=== PATIENT | female | born 1940 | race Caucasian/White ===

== ENCOUNTER 2020-07-18 10:21 | Inpatient (IN) ==
[2020-07-18] MEDS ORDERED: Ondansetron 4 mg VIAL 2 MG/ML 2 ml VIAL IV ONE (11:28)
[2020-07-18] MEDS ORDERED: Morphine 4 MG/ML VIAL (1 ml) IV ONE (11:29)
[2020-07-18 11:39] LABS: ABS Basophils 0.1 10^3/ul (0-0.2); ABS Eosinophils 0.1 10^3/ul (0-0.6); ABS Lymphocytes 0.6 10^3/ul (1.0-4.8); ABS Monocytes 0.6 10^3/ul (0-0.8); Eosinophil % 1.5 %; Hematocrit 37 % (35-47); Hemoglobin 12.2 g/dL (12.0-16.0); Lymphocyte % 9.5 %; Mean Corpuscular HGB Conc 33 g/dL (31-36); Mean Corpuscular Hemoglobin 32 pg (27-31); Mean Corpuscular Volume 98 fL (80-97); Mean Platelet Volume 10.3 fL (7.4-10.4); Platelet Count 261 10^3/uL (150-450); Red Blood Count 3.82 10^6 /uL (3.70-4.87); Red Cell Distribution Width 14 % (10-15); White Blood Count 6.4 10^3/uL (3.5-10.8)
[2020-07-18 11:51] LABS: Albumin 3.1 g/dL (3.2-5.2); CO2 Carbon Dioxide 22 mmol/L (22-32); Chloride 96 mmol/L (101-111); Sodium 131 mmol/L (135-145)
[2020-07-18 11:56] LABS: Activated Partial Thrombo Time 26.6 seconds (26.0-38.0); INR 1.18 (0.82-1.09)
[2020-07-18 11:57] LABS: ALT 60 U/L (7-52); AST 53 U/L (13-39); Albumin/Globulin Ratio 0.9 (1-3); Alkaline Phosphatase 70 U/L (34-104); BUN/Creatinine Ratio 18.2 (8-20); Blood Urea Nitrogen 35 mg/dL (6-24); C Reactive Protein 41.41 mg/L (<8.01); EGFR African American 30.4 (>60); EGFR Non-African American 25.1 (>60); Globulin 3.4 g/dL (2-4); Total Protein 6.5 g/dL (6.4-8.9)
[2020-07-18 12:05] LABS: Anion Gap 13 mmol/L (2-11); Glucose 623 mg/dL (70-100); Potassium 5.3 mmol/L (3.5-5.0)
[2020-07-18] MEDS ORDERED: NS 0.9% 1000 ml BAG 1,000 ML IV ONE (12:17)
[2020-07-18] MEDS ORDERED: cefTRIAXone 1 gm/50 mL NS BAG 1 GM/50 ML BAG IV ONE (12:18)
[2020-07-18 12:22] LABS: Troponin I 0.04 ng/mL (<0.03)
[2020-07-18 12:28] LABS: Urine Appearance Clear; Urine Bilirubin Negative (Negative); Urine Blood 1+ (Negative); Urine Color Yellow; Urine Glucose 3+(>=500 mg/dL) (Negative); Urine Ketones 1+ (Negative); Urine Nitrite Negative (Negative); Urine Protein Negative (Negative); Urine Specific Gravity 1.021 (1.010-1.030); Urine Urobilinogen Negative (Negative)
[2020-07-18] MEDS ORDERED: Dextrose 50% Syringe 50 ml 25 GM/50 ML SYRINGE IV PUSH ONE (12:28)
[2020-07-18 12:30] LABS: Urine Bacteria Absent (Absent); Urine Red Blood Cell Trace(0-2/hpf) (Absent); Urine Squamous Epithelial Cell Present (Absent); Urine White Blood Cell Trace(0-5/hpf) (Absent)
[2020-07-18] MEDS ORDERED: Remdesivir 100 mg Vial 200 MG in NS 0.9% 250 ml 210 ML IV ONE (12:38)
[2020-07-18] MEDS ORDERED: Dextrose 50% Syringe 50 ml 25 GM/50 ML SYRINGE IV PUSH PRN (12:45)
[2020-07-18] MEDS ORDERED: Albuterol HFA INHALER 8 gm MDI INH PRN (13:59)
[2020-07-18] MEDS: Azithromycin 500 mg/250 ml NS 500 MG/250 ML BAG IVPB SCH (14:25)
[2020-07-18] MEDS: Insulin GLARGINE 100 un/ml 10 ml VIAL SUBCUT SCH (14:25)
[2020-07-18 15:14] LABS: Troponin I 0.03 ng/mL (<0.03)
[2020-07-18 16:12] LABS: Glucose 508 mg/dL (70-100)
[2020-07-18 17:23] LABS: Cholesterol 147 mg/dL; HDL Cholesterol 19.7 mg/dL; LDL Cholesterol 88 mg/dL; Triglycerides 199 mg/dL
[2020-07-18] MEDS: Enoxaparin 30 MG/0.3 ML SYR SUBCUT SCH (17:29)
[2020-07-18] MEDS: Ondansetron 4 mg VIAL 2 MG/ML 2 ml VIAL IV PRN (17:56)
[2020-07-18 18:01] LABS: INR 1.23 (0.82-1.09)
[2020-07-18 18:16] LABS: Glucose Confirmatory 407 mg/dL (70-100)
[2020-07-18 18:26] LABS: Troponin I 0.04 ng/mL (<0.03)
[2020-07-18] MEDS ORDERED: Insulin GLARGINE 100 un/ml 10 ml VIAL SUBCUT SCH (21:00)
[2020-07-18] MEDS ORDERED: Carvedilol 12.5 MG TAB (NF) PO SCH (21:00)
[2020-07-18] MEDS: Pantoprazole VIAL 40 MG VIAL IV SCH (21:12)
[2020-07-19 06:58] LABS: ALT 49 U/L (7-52); Albumin/Globulin Ratio 0.9 (1-3); Alkaline Phosphatase 64 U/L (34-104); BUN/Creatinine Ratio 19.2 (8-20); Blood Urea Nitrogen 33 mg/dL (6-24); CO2 Carbon Dioxide 25 mmol/L (22-32); Calcium 8.7 mg/dL (8.6-10.3); Chloride 104 mmol/L (101-111); EGFR African American 34.5 (>60); EGFR Non-African American 28.5 (>60); Globulin 3.3 g/dL (2-4); Glucose 226 mg/dL (70-100); Sodium 137 mmol/L (135-145); Total Protein 6.3 g/dL (6.4-8.9)
[2020-07-19 07:20] LABS: Hematocrit 36 % (35-47); Mean Corpuscular HGB Conc 33 g/dL (31-36); Mean Corpuscular Hemoglobin 32 pg (27-31); Mean Corpuscular Volume 98 fL (80-97); Mean Platelet Volume 10.2 fL (7.4-10.4); Platelet Count 265 10^3/uL (150-450); Red Blood Count 3.71 10^6 /uL (3.70-4.87); Red Cell Distribution Width 14 % (10-15); White Blood Count 5.7 10^3/uL (3.5-10.8)
[2020-07-19 07:58] LABS: ABS Lymphocytes 0.6 10^3/ul (1.0-4.8); ABS Monocytes 0.1 10^3/ul (0-0.8); ABS Neutrophils 4.9 10^3/ul (1.5-7.7); Eosinophil % 0.3 %
[2020-07-19 09:41] LABS: Anion Gap 8 mmol/L (2-11); Troponin I 0.03 ng/mL (<0.03)
[2020-07-19] MEDS: Ondansetron 4 mg VIAL 2 MG/ML 2 ml VIAL IV PRN ×2 (10:02→22:22)
[2020-07-19] MEDS: cefTRIAXone 1 gm/50 mL NS BAG 1 GM/50 ML BAG IVPB SCH (12:24)
[2020-07-19] MEDS: Azithromycin 500 mg/250 ml NS 500 MG/250 ML BAG IVPB SCH (13:39)
[2020-07-19 14:34] LABS: INR 1.2 (0.82-1.09)
[2020-07-19] MEDS: Prochlorperazine 5 mg/ml 2 ml VIAL (10 mg) IV PRN (16:02)
[2020-07-19 16:20] LABS: Magnesium 1.8 mg/dL (1.9-2.7); Potassium Redraw 4.8 mmol/L (3.5-5.0)
[2020-07-19] MEDS ORDERED: Magnesium Sulfate IV 1GM/100ML 1 GM/100 ML BAG IV ONE (16:36)
[2020-07-19] MEDS: Enoxaparin 30 MG/0.3 ML SYR SUBCUT SCH (17:57)
[2020-07-19] MEDS: Pantoprazole VIAL 40 MG VIAL IV SCH (20:11)
[2020-07-19] MEDS: Remdesivir 100 mg Vial 100 MG in NS 0.9% 250 ml 230 ML IV SCH (22:25)
[2020-07-19] MEDS: Insulin GLARGINE 100 un/ml 10 ml VIAL SUBCUT SCH (22:30)
[2020-07-20] MEDS: Insulin GLARGINE 100 un/ml 10 ml VIAL SUBCUT SCH
[2020-07-20 09:27] LABS: Albumin 2.8 g/dL (3.2-5.2); Albumin/Globulin Ratio 0.9 (1-3); BUN/Creatinine Ratio 18.1 (8-20); Calcium 8.7 mg/dL (8.6-10.3); EGFR Non-African American 29.7 (>60); Globulin 3.1 g/dL (2-4); Magnesium 2.2 mg/dL (1.9-2.7); Potassium 4.7 mmol/L (3.5-5.0); Total Bilirubin 0.4 mg/dL (0.2-1.0); Total Protein 5.9 g/dL (6.4-8.9)
[2020-07-20 10:12] LABS: Glucose Confirmatory 452 mg/dL (70-100)
[2020-07-20] MEDS ORDERED: Dextrose 50% Syringe 50 ml 25 GM/50 ML SYRINGE IV PUSH PRN (10:19)
[2020-07-20] MEDS: cefTRIAXone 1 gm/50 mL NS BAG 1 GM/50 ML BAG IVPB SCH (12:31)
[2020-07-20] MEDS: Azithromycin 500 mg/250 ml NS 500 MG/250 ML BAG IVPB SCH (13:31)
[2020-07-20 13:41] LABS: INR 1.21 (0.82-1.09)
[2020-07-20] MEDS: Enoxaparin 30 MG/0.3 ML SYR SUBCUT SCH (17:05)
[2020-07-20] MEDS ORDERED: Insulin GLARGINE 100 un/ml 10 ml VIAL SUBCUT SCH (21:00)
[2020-07-20] MEDS: Remdesivir 100 mg Vial 100 MG in NS 0.9% 250 ml 230 ML IV SCH (23:22)
[2020-07-20] MEDS: Pantoprazole VIAL 40 MG VIAL IV SCH (23:39)
[2020-07-20] MEDS: Ondansetron 4 mg VIAL 2 MG/ML 2 ml VIAL IV PRN (23:39)
[2020-07-21 06:33] LABS: Albumin 2.7 g/dL (3.2-5.2); Calcium 8.4 mg/dL (8.6-10.3); Potassium 4.1 mmol/L (3.5-5.0); Total Bilirubin 0.3 mg/dL (0.2-1.0)
[2020-07-21 06:39] LABS: Albumin/Globulin Ratio 0.9 (1-3); EGFR African American 36.2 (>60); EGFR Non-African American 29.9 (>60); Globulin 2.9 g/dL (2-4); Total Protein 5.6 g/dL (6.4-8.9)
[2020-07-21] MEDS: cefTRIAXone 1 gm/50 mL NS BAG 1 GM/50 ML BAG IVPB SCH (11:29)
[2020-07-21 15:44] LABS: INR 1.16 (0.82-1.09)
[2020-07-21] MEDS: Pantoprazole VIAL 40 MG VIAL IV SCH (17:32)
[2020-07-21] MEDS: Enoxaparin 30 MG/0.3 ML SYR SUBCUT SCH (17:32)
[2020-07-21] MEDS: Ondansetron 4 mg VIAL 2 MG/ML 2 ml VIAL IV PRN (21:38)
[2020-07-21] MEDS: Remdesivir 100 mg Vial 100 MG in NS 0.9% 250 ml 230 ML IV SCH (21:46)
[2020-07-21] MEDS: Insulin GLARGINE 100 un/ml 10 ml VIAL SUBCUT SCH (22:04)
[2020-07-22] MEDS: Prochlorperazine 5 mg/ml 2 ml VIAL (10 mg) IV PRN (03:57)
[2020-07-22 07:01] LABS: ABS Lymphocytes 1.6 10^3/ul (1.0-4.8); ABS Monocytes 0.7 10^3/ul (0-0.8); ABS Neutrophils 6.8 10^3/ul (1.5-7.7); Eosinophil % 0.2 %; Hematocrit 37 % (35-47); Hemoglobin 12.6 g/dL (12.0-16.0); INR 1.14 (0.82-1.09); Lymphocyte % 17.5 %; Mean Corpuscular HGB Conc 34 g/dL (31-36); Mean Corpuscular Hemoglobin 32 pg (27-31); Mean Corpuscular Volume 96 fL (80-97); Mean Platelet Volume 10.1 fL (7.4-10.4); Platelet Count 279 10^3/uL (150-450); Red Cell Distribution Width 14 % (10-15); White Blood Count 9.1 10^3/uL (3.5-10.8)
[2020-07-22 07:13] LABS: BUN/Creatinine Ratio 18.5 (8-20); Calcium 8.8 mg/dL (8.6-10.3); EGFR Non-African American 30.6 (>60); Globulin 3.1 g/dL (2-4); Potassium 4.3 mmol/L (3.5-5.0); Total Bilirubin 0.4 mg/dL (0.2-1.0); Total Protein 6.1 g/dL (6.4-8.9)
[2020-07-22] MEDS: cefTRIAXone 1 gm/50 mL NS BAG 1 GM/50 ML BAG IVPB SCH (12:18)
[2020-07-22] MEDS ORDERED: Remdesivir 100 mg Q24H MAINTENANCE DOSING IV SCH (14:00)
[2020-07-22] MEDS: Enoxaparin 30 MG/0.3 ML SYR SUBCUT SCH (17:41)
[2020-07-22] MEDS: Pantoprazole VIAL 40 MG VIAL IV SCH (17:44)
[2020-07-22] MEDS: Insulin GLARGINE 100 un/ml 10 ml VIAL SUBCUT SCH (21:01)
[2020-07-23] MEDS ORDERED: Remdesivir 100 mg Q24H MAINTENANCE DOSING IV SCH (09:00)
[2020-07-23 12:23] VITALS: BP 142/43
[2020-07-23] MEDS: cefTRIAXone 1 gm/50 mL NS BAG 1 GM/50 ML BAG IVPB SCH (13:00)
== END 2020-07-23 14:40 | DRG 177 ==
LOC: ED 10:21 → MED 13:43
PROVIDERS: ADMIT Internal Medicine; ATTEND Internal Medicine